=== PATIENT | male | born 1995 | race Caucasian/White ===

== ENCOUNTER 2021-08-19 14:48 | Emergency (ER) | payer BC ==
[~2021-08-19] VITALS: Ht 170.2 cm; Wt 69.4 kg
[2021-08-19 14:56] VITALS: BP 138/91
--- NOTE | 2021-08-19 15:00 | NUR ---
PT TO LOBBY.
--- NOTE | 2021-08-19 15:25 | NUR ---
PT TAKEN TO XR VIA W/C.
[2021-08-19] MEDS ORDERED: HYDROcodone/APAP 5/325 MG 1 TAB TAB PO ONE (15:55)
--- NOTE | 2021-08-19 15:57 | NUR ---
PT TAKEN TO ER BED 10.
--- NOTE | 2021-08-19 16:20 | NUR ---
26/M PRESENTS TO ED WITH C/O RIGHT ANKLE PAIN SINCE THURSDAY. STATES HE WAS PLAYING SOCCER AND HIS FOOT BENT BACKWARDS, REPORTS 9/10 PAIN THAT WORSENS WITH MOVEMENT OF ANKLE OR ANY WEIGHT BEARING ON FOOT. PATIENT DENIES TAKING MEDS FOR PAIN, SLIGHT SWELLING NOTED TO ANKLE.
[2021-08-19] MEDS ORDERED: ACET-8386 PO (16:44)
[2021-08-19] MEDS ORDERED: IBUP-2213 PO (16:44)
--- NOTE | 2021-08-19 16:45 | NUR ---
4 INCH ORTHOGLASS USED TO APPLY POSTERIOR SHORT LEG SPLINT. PMSC'S ASSESSED AND WNL. SPLINT EVALUATED BY SARA BRAUN S/P JANE.
[2021-08-19 17:10] VITALS: BP 138/91
--- NOTE | 2021-08-19 17:10 | NUR ---
Patient discharged with v/s stable. Written and verbal after care instructions ABOUT ANKLE FRACTURE given and explained. Patient alert, oriented and verbalized understanding of instructions. Ambulatory with steady gait. All questions addressed prior to discharge. ID band removed. Patient advised to follow up with PMD. Rx of NORCO 5-325 AND IBUPROFEN given. Patient educated on indication of medication including possible reaction and side effects. Opportunity to ask questions provided and answered.
== END 2021-08-19 17:10 | disposition home or self-care (01) ==
LOC: MED 14:48
DX: S82.831A Other fracture of upper and lower end of right fibula, initial encounter for closed fracture (principal); Z79.1 Long term (current) use of non-steroidal anti-inflammatories (NSAID); Z79.891 Long term (current) use of opiate analgesic; X58.XXXA Exposure to other specified factors, initial encounter; Y92.89 Other specified places as the place of occurrence of the external cause; Y93.89 Activity, other specified; Y99.8 Other external cause status
CPT/HCPCS: 29515; 73610; 73630; 99284